=== PATIENT | female | born 1965 | race Caucasian/White ===

== ENCOUNTER 2023-05-22 18:30 | Emergency (ER) | payer MEDICARE, SELFPAY ==
[2023-05-22 18:46] VITALS: BP 152/80; PULSE 99; RESP 18; TEMP 36.5; O2SAT 96; BMI 23.3
--- NOTE | 2023-05-22 22:19 | ED.NECK ---
HPI - Neck Pain/Injury General Chief Complaint: Neck Pain/Injury Stated Complaint: LT arm, pinch in neck getting worst Time Seen by Provider: 05/22/23 18:34 Mode of arrival: Ambulatory History of Present Illness HPI Narrative: 57-year-old female daily smoker presents with a chief complaint of left-sided neck pain that radiates into her left shoulder and arm. She states that the problem has been present for about 1 month but seems to be getting worse. She now has some numbness and tingling in her arm but denies any weakness. She is had no trauma or injury. She denies fever or chills and takes no blood thinners. She denies headaches, blurred vision, trouble speech, dizziness or lightheadedness. She has no chest pain, shortness of breath, nausea or vomiting. Her symptoms are worse when she turns her neck and improves with rest. She has been taking Tylenol and Flexeril with little relief Related Data Home Medications Medication Instructions Recorded Confirmed hydroxyzine pamoate 25 mg capsule BID ##0 01/28/13 (Vistaril) pramipexole 0.25 mg tablet 0.25 mg PO BID ##0 01/28/13 (Mirapex) trazodone 50 mg tablet ##0 01/28/13 cyclobenzaprine 5 mg tablet 5 mg PO TID PRN ##0 12/05/17 Previous Rx's Medication Instructions Recorded gabapentin 300 mg capsule 300 mg PO BEDTIME #14 caps 05/22/23 hydrocodone 5 mg-acetaminophen 325 1 tab PO Q4-6H PRN pain #10 tabs 05/22/23 mg tablet ketorolac 10 mg tablet 10 mg PO Q6H PRN pain #14 tabs 05/22/23 methylprednisolone 4 mg tablets in See Rx Instructions PO .COMPLEX 05/22/23 a dose pack (Medrol (Bob)) #21 ea Allergies Allergy/AdvReac Type Severity Reaction Status Date / Time Tetracycline Allergy Unknown Uncoded 02/08/18 11:45 Review of Systems Review of Systems Narrative: GENERAL: Denies chills, fatigue, malaise, fever, sweats. HEENT: Denies sinus pain, ear pain, sore throat, difficulty swallowing, dizziness. RESPIRATORY: Denies dyspnea, cough, wheezing, hemoptysis, sputum. CARDIOVASCULAR: Denies chest pain, palpitations, orthopnea, edema, GASTROINTESTINAL: Denies nausea, vomiting, abdominal pain, diarrhea, constipation, melena. : Denies dysuria, frequency, incontinence, hematuria, urinary retention. MUSCULOSKELETAL: See HPI SKIN: Denies rash, skin lesions, or other NEUROLOGIC: See HPI PSYCHIATRIC: No concerning psychosocial issues. 12 point review of systems is negative except for those stated above Patient History Social History Smoking Status: Current every day smoker Smoking Status: Current every day smoker tobacco type: cigarettes alcohol intake frequency: holidays/special occasions only Substance Use Type: marijuana Exam Narrative Exam Narrative: GENERAL: [57] year old patient appears stated age. Well-developed patient, in mild distress. HEAD: Atraumatic. Normocephalic. EYES: Pupils equal round and reactive. Extraocular motions intact. No scleral icterus. No injection or drainage. ENT: Nose without bleeding, purulent drainage. Throat without erythema, tonsillar hypertrophy or exudate. Airway patent. NECK: Trachea midline. No midline tenderness, there is pain with palpation of the paraspinal musculature on the left side. No change with axial loading. Increased pain when patient turns her head to the right. No measurable weakness or sensory deficit CARDIOVASCULAR: Regular rate and rhythm without murmurs, gallops, or rubs. RESPIRATORY: Clear to auscultation. Breath sounds equal bilaterally. No wheezes, rales, or rhonchi. GASTROINTESTINAL: Abdomen soft, non-tender, nondistended. EXTREMITIES: No edema or joint tenderness. BACK: Nontender without deformity or crepitance. No flank tenderness. NEURO: AOx3. SKIN: No rash or erythema of visible areas Initial Vital Signs Initial Vital Signs: Vital Signs Temperature 97.7 F 05/22/23 18:46 Pulse Rate 99 H 05/22/23 18:46 Respiratory Rate 18 05/22/23 18:46 Blood Pressure 152/80 H 05/22/23 18:46 Pulse Oximetry 96 05/22/23 18:46 Oxygen Delivery Method Room Air 05/22/23 18:46 Course Orders Ordered: Discontinued Medications Hydrocodone Bitart/Acetaminophen (Hydrocodone/Acet 5/325 Prepack) 1 bottle MISC SEEINSTR ONE Stop: 05/22/23 22:30 Gabapentin (Gabapentin 300 Mg Capsule) 300 mg PO NOW ONE Stop: 05/22/23 22:30 Prednisone (Prednisone 20 Mg Tablet) 40 mg PO NOW ONE Stop: 05/22/23 22:30 Vital Signs Vital signs: Vital Signs - 8 hr 05/22/23 18:46 Temperature 97.7 F Pulse Rate 99 H Respiratory Rate 18 Blood Pressure 152/80 H Pulse Oximetry 96 Oxygen Delivery Method Room Air MDM - Neck Pain/Injury MDM Narrative Medical decision making narrative: [57] year old patient presents with left-sided neck pain with radiation into her arm and tingling Multiple etiologies for patient's symptoms considered including, but not limited to: Cervical radiculopathy versus other [] Prior Charts reviewed in our EMR Primary Historian: patient Patient's history and physical exam are reassuring. She has pain over the past month with increasing severity that now radiates into her arm and now has tingling but no measurable weakness. There is no reproducible tingling. She has no cardiac equivalent such as dizziness, weakness or lightheadedness, no chest pain or shortness of breath. She has no change with axial load, no fever, no anticoagulants or suspicion of an epidural hematoma or abscess. Findings and discharge diagnosis discussed with patient/family followed by verbalization of understanding Return precautions discussed with patient/family whom verbalize understanding of diagnosis and plan Discharge Plan Departure Patient Disposition: Home Clinical Impression: Cervical radiculopathy Instructions: DI for Cervical Radiculopathy Activity Restrictions/Additional Instructions: *You have been diagnosed with [cervical radiculopathy] *What to do: *Please continue to take your regular medications as directed. [ x] New medication prescriptions sent to your pharmacy: [[facility] ] [ ] New medication written as a paper prescription [ ] No new medications given *Please follow up with your primary care provider in 2-3 days, call for an appointment. Let them know you were seen in the Emergency Department and that we ask that you be seen in follow up. We will electronically transmit a record of today's note if your PCP is in our system *If you do not have a primary care provider please contact the [facility] Resource line at [phone]. They will ask some questions about your medical history and help get you set up with a doctor in the community. *Return to Emergency Department if you should have any new, worsening or concerning symptoms, such as [fever greater than 101 F, shaking chills, worsening pain, persistent vomiting or other bothersome symptoms] You have been prescribed a short course of narcotic medications. These are potentially dangerous and addictive medications that should be used carefully. While on these medications you cannot drive or operate heavy machinery. Additionally, you cannot sign legal documents or perform any duties such as this. 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 Please understand that we cannot provide further refills of narcotics or controlled substances through the ED and your pain management will need to be through your Primary Care Provider Prescriptions: New hydrocodone-acetaminophen 5-325 mg tablet 1 tab PO Q4-6H PRN (Reason: pain) Qty: 10 0RF ketorolac 10 mg tablet 10 mg PO Q6H PRN (Reason: pain) Qty: 14 0RF gabapentin 300 mg capsule 300 mg PO BEDTIME Qty: 14 0RF methylprednisolone [Medrol (Bob)] 4 mg tablets,dose pack See Rx Instructions .ROUTE .COMPLEX Qty: 21 0RF Rx Instructions: orally per package directions No Action trazodone 50 MG tablet Qty: 0 pramipexole [Mirapex] 0.25 MG tablet 0.25 mg PO BID Qty: 0 hydroxyzine pamoate [Vistaril] 25 MG capsule BID Qty: 0 cyclobenzaprine 5 MG tablet 5 mg PO TID PRNQty: 0 Referrals: Pablito Angelo MD [Primary Care Provider] - Stand Alone Forms: Patient Portal/API
[2023-05-22] MEDS: HYDROCODONE/ACET 5/325 PREPACK 1 BOTTLE MISC (22:38)
[2023-05-22] MEDS: predniSONE 20 MG TABLET 40 MG PO (22:39)
[2023-05-22] MEDS: GABAPENTIN 300 MG CAPSULE PO (22:39)
[2023-05-22 23:06] VITALS: BP 150/80; PULSE 89; RESP 16; O2SAT 99
== END 2023-05-22 22:42 | disposition home or self-care (01) ==
PROVIDERS: Emergency Provider Emergency Medicine; PCP Family Medicine
DX: M54.12 Radiculopathy, cervical region (principal)
CPT/HCPCS: 99283

== ENCOUNTER → 2025-01-17 07:33 | Outpatient (CLI) | payer MEDICARE, SELFPAY ==
--- NOTE | 2025-01-17 07:41 | DI.ECHO.S_ITS ---
[facility] : : [address] : : [place] : : [id number] : : Phone: [phone] Echocardiogram Report + + :Name: FAB MENDEZ I Study Date: 01/17/2025 Height: 65.5 in: :Hospital ReadingLocation: Weight: 140 lb : : Gender: Female BSA: 1.7 m2 : :: 1965 Age: 59 yrs BP: 135/88 mmHg: :Reason For Study: CORONARY ARTERY DISEASE : :Ordering Physician: KACEY : :BREANNA Performed By: Elaine Rivera : :Referring: BREANNA ERAZO : + + Interpretation Summary Normal sinus rhythm. Normal LV size and wall thickness. There is basal inferolateral, mid- inferolateral, mid inferior, mid-inferoseptal akinesis. These observations are concerning for completed infarction in PDA territory. Otherwise normal wall motion throughout. Ejection fraction is 50-55 %. Stage I diastolic dysfunction. Normal chamber sizes. No significant valvular abnormalities. Estimated PA systolic pressure is 22 mmHg assuming right atrial pressure of 3 mmHg. No prior study available for comparison. Procedure: A two-dimensional transthoracic echocardiogram with color flow and Doppler was performed. The study quality was technically adequate. There is no prior echocardiogram noted for this patient. The patient was in sinus rhythm with heart rates between 58-70 bpm during the exam. Left Ventricle: The left ventricle is normal in size and wall thickness. The ejection fraction is estimated to be 50-55%. Right Ventricle: The right ventricle is normal in size and function. Atria: The left atrial size is normal. Right atrial size is normal. There is no Doppler evidence for an interatrial shunt. Mitral Valve: The mitral valve leaflets appear to open well. There is trace mitral regurgitation. Aortic Valve: The aortic valve is trileaflet. The aortic valve is mildly calcified. There is no aortic valve stenosis. No aortic regurgitation is present. Tricuspid Valve: The tricuspid valve leaflets are thin and pliable. There is mild tricuspid regurgitation. The right ventricular systolic pressure is estimated to be at least 22 mmHg based on an estimated right atrial pressure of 3 mm Hg. Pulmonic Valve: The pulmonic valve leaflets are thin and pliable; valve motion is normal. There is mild pulmonic regurgitation. Great Vessels: The aortic root is normal size. The dimensions of the ascending aorta are normal. The IVC is of normal diameter and collapses greater than 50% with a sniff. This suggests a low right atrial pressure of 3 mm Hg. Pericardium/ Pleura There is no pericardial effusion. There is no pleural effusion. MMode/2D Measurements & Calculations LVIDd: 5.5 cm LVOT diam: 2.0 cm LVIDs: 4.6 cm Ao root diam: 3.1 cm FS: 17.9 % asc Aorta Diam: 3.3 cm EPSS: 0.54 cm Ao Arch Diam (Prox Trans): 2.7 cm IVSd: 0.91 cm LVPWd: 0.61 cm LV nogueira. diameter/BSA (cm/m^2): 3.2 LV sys. diameter/BSA (cm/m^2): 2.7 LA A2 area: 17.8 cm2 RA long axis: 4.5 cm LA A4 area: 13.8 cm2 RA area: 14.4 cm2 LA length (vol): 4.3 cm RA vol: 39.4 ml LA vol: 48.6 ml RA : 23.0 ml/m2 LA vol index: 28.4 ml/m2 IVC diam: 1.1 cm RVD1 (basal): 3.1 cm RVD2 (mid): 2.6 cm TAPSE: 2.2 cm Doppler Measurements & Calculations Ao V2 max: 137.2 cm/sec LVOT Max Aneudy: 116.1 cm/sec Ao V2 mean: 90.7 cm/sec LV V1 max P.4 mmHg Ao max P.5 mmHg LV V1 VTI: 24.8 cm Ao mean P.7 mmHg ANGELA(I,D): 2.7 cm2 Ao V2 VTI: 30.2 cm ANGELA(V,D): 2.8 cm2 sev ratio: 0.82 ANGELA indexed to BSA (cm^2/m^2): 1.6 MV E max aneudy: 78.0 cm/sec TR max aneudy: 219.1 cm/sec MV A max aneudy: 84.2 cm/sec TR max P.2 mmHg MV E/A: 0.93 PA V2 max: 94.4 cm/sec Med Peak E' Aneudy: 4.6 cm/sec PA V2 mean: 60.8 cm/sec E/E' med: 16.9 PA mean P.7 mmHg Lat Peak E' Aneudy: 6.3 cm/sec PA pr(Accel): 32.8 mmHg E/E' lat: 12.3 E/e' average: 14.6 MV dec time: 0.19 sec Pulm A Revs Aneudy: 24.1 cm/sec SV(LVOT): 81.6 ml Pulm A Revs Dur: 0.08 sec Electronically signed by: Meaghan Ahn M.D. on Reading Physician:01/17/2025 10:54 AM
== END ==
PROVIDERS: PCP Physician Assistant Medical; Referring Provider Physician Assistant Medical; Visit Provider Physician Assistant Medical
DX: I25.10 Atherosclerotic heart disease of native coronary artery without angina pectoris (principal); I07.1 Rheumatic tricuspid insufficiency
CPT/HCPCS: 93306

== ENCOUNTER → 2025-03-05 13:54 | Outpatient (CLI) | payer MEDICARE, SELFPAY ==
--- NOTE | 2025-03-05 | DI.NM.S_ITS ---
PROCEDURE: NM LORIE PERF SPECT REST & STR Rest and exercise myocardial perfusion SPECT with gated imaging and ejection fraction RADIOPHARMACEUTICAL: 25.7 mCi Tc-99m sestamibi IV at rest and 25.9 mCi Tc-99m sestamibi IV at peak exercise. A two day-protocol was performed. INDICATIONS: CAD TECHNIQUE: Radiopharmaceutical was injected at peak stress test, and also at rest. SPECT images were obtained. SPECT myocardial perfusion images were displayed in short axis, horizontal long axis, and vertical long axis views. Gated images were reviewed using [employer] software. COMPARISON: None. CARDIAC STRESS: A standard Alexandro treadmill exercise tolerance test was performed by the patient under the supervision of an attending staff. The patient exercised for 6 minutes and 1 seconds; functional aerobic impairment (HUMBERTO) is +14%. Hemodynamic data: There is normal blood pressure and heart rate response to exercise stress. Patient achieved 91% of maximum predicted heart rate at peak exercise. Symptoms: Patient denied chest pain during exercise. EKG: Resting ECG showed sinus rhythm with mild horizontal ST depressions in the inferior leads. No diagnostic EKG changes during exercise or recovery; occasional PVCs present. FINDINGS: Raw data: There is good myocardial labeling by radiotracer. No significant motion artifacts. Stav-pt-vapwx ratio is 0.18 (normal is less than 0.38 for sestamibi tracer, and less than 0.50 for thallium tracer). Left ventricle function: Gated images demonstrate normal left ventricle wall thickening. No segmental wall motion abnormality. No transient ischemic dilation; TID is 0.84 (normal less than 1.3). The left ventricle resting end-diastolic volume is 136 mL. Left ventricle stress ejection fraction is 64%; normal values are above 45%. Myocardial perfusion: Mildly intense fixed apical defect that persists with prone imaging, suggesting prior small infarct with no significant bernardo-infarct ischemia. SSS 4, SRS 3. IMPRESSION: Abnormal treadmill nuclear stress test from inducible ischemia standpoint. 1) Mildly intense fixed apical defect that persists with prone imaging, suggesting prior small infarct with no significant bernardo-infarct ischemia. SSS 4, SRS 3. 2) Normal left ventricular size, wall motion, and systolic function (EF post stress 64%). 3) No diagnostic ST changes during exercise or recovery. 4) No angina during the study. 5) Mildly reduced exercise tolerance (7METs, HUMBERTO +13%). Target heart rate reached. Appropriate BP response to exercise. 6) No prior nuclear stress test available for comparison. Dictated by: Snehal Garcia MD on 03/06/2025 at 13:42 Approved by: Snehal Garcia MD on 03/06/2025 at 13:47
== END ==
PROVIDERS: PCP Physician Assistant Medical; Visit Provider Physician Assistant Medical
DX: I25.10 Atherosclerotic heart disease of native coronary artery without angina pectoris (principal); R94.39 Abnormal result of other cardiovascular function study
CPT/HCPCS: 78452; 93017; A9502